=== PATIENT | female | born 1985 | race Asian ===

== ENCOUNTER 2023-08-07 13:41 | Outpatient (CLI) | payer OTHER, SELFPAY ==
--- NOTE | ~2023-08-07 | US_ITS ---
EXAMINATION: US OB <= 14 weeks fetus DATE: 08/07/2023 14:14 INDICATION: Confirmation of viability during first trimester TECHNIQUE: Real-time pelvic ultrasound utilizing transabdominal probe was performed. The fatuma jacobson radiologist was not present for the study. COMPARISON: None. FINDINGS: The uterus measures 14.1 x 6.8 x 9.4 cm. There is an intrauterine gestational sac. A yolk sac and fe arlene pole are identified. The crown rump length measures 1.9 cm, which correlates with an estimated ge stational age of 11 weeks and 5 days. heart motion is identified measuring 171 beats per minute (bpm) by M-mode Doppler. The bilateral ovaries are not visualized. There is no free fluid in the pel vis. IMPRESSION: 1. Single living fetus with heart rate of 171 bpm. 2. Gestational age by ultrasound of 11 weeks 5 day(s) +/- 7 day(s) with ultrasound estimated date of delivery (NEW) of 02/21/2024. Reviewed, dictated and finalized at location A. IMPRESSION: 1. Single living fetus with heart rate of 171 bpm. 2. Gestational age by ultrasound of 11 weeks 5 day(s) +/- 7 day(s) with ultras ound estimated date of delivery (ENW) of 02/21/2024.
== END 2023-08-07 13:42 ==
PROVIDERS: PCP Advanced Practice Midwife; Visit Provider Advanced Practice Midwife
DX: O36.80X0 Pregnancy with inconclusive fetal viability, not applicable or unspecified (principal); Z3A.00 Weeks of gestation of pregnancy not specified
CPT/HCPCS: 76801

== ENCOUNTER 2023-11-08 10:03 | Observation (INO) | payer OTHER, SELFPAY ==
[2023-11-08 10:38] VITALS: BP 112/75; PULSE 92
[2023-11-08 10:45] VITALS: BP 115/74; PULSE 92
--- NOTE | 2023-11-08 10:58 | OBADM ---
This patient, Hallie Snell, admitted to the OB room OB Post 116 for observation. Patient/family oriented to hospital policies and general routines including ID bracelet, bed and alarms, visiting hours, pain management, procedures, bathroom and other care routines, personal items, smoking policy, room service/diet, and visiting hours. Patient/Family are encouraged to report perceived risks to care and to ask questions if they do not understand what they are told or what they should do.
[2023-11-08 11:00] VITALS: BP 114/71; PULSE 92
[2023-11-08 11:15] VITALS: BP 108/64; PULSE 89
[2023-11-08 11:16] LABS: Appearance Urine Clear (Clear); Bacteria Urine 1+ /hpf; Bilirubin Urine Negative (Negative); Blood Urine Negative (Negative); Color Urine Yellow (Yellow); Glucose Urine UA Trace mg/dL (Negative); Ketones Urine Negative (Negative); Leukocyte Esterase Ur 1+ LEU/UL (Negative); Need Manual Microscopic Reviewed; Nitrate Urine Negative (Negative); Non Pathogenic Casts 0-2; Protein Urine Negative (Negative); RBC Urine 0-2 /hpf (0-2); Squamous Epithelial Cell Urine Occasional /hpf (Few); Urobilinogen Urine 0.2 mg/dL (<2.0); WBC Urine 0-5 /hpf (0-3); pH Urine 7.5 (5.0-9.0)
[2023-11-08 11:17] LABS: Add Urine Microscopic? YES
[2023-11-08 11:30] VITALS: BP 104/66; PULSE 90
[2023-11-08 11:45] VITALS: BP 108/71; PULSE 86
--- NOTE | 2023-11-08 11:55 | PC.NURSE ---
Pt refused terbutaline. States she is afraid of shots. Discussed risk of contractions continuing and turning into labor. Pt refused medication at this time.
[2023-11-08] MEDS: NIFEdipine 10 MG CAPSULE PO (12:11)
--- NOTE | 2023-11-16 08:46 | PM.OBTRLD ---
OB - Triage/Final Diagnosis Visit Information Reason for evaluation: other (abdominal pain) Comments/Additional reasons for admission: I have assessed the risk for this patient, Hallie Snell, and determined that she would benefit from observation care. Evaluation Laboratory results: Laboratory Tests 11/08/23 10:52 Urine Color Yellow Urine Appearance Clear Urine pH 7.5 Ur Specific [place] 1.010 Urine Protein Negative Urine Glucose (UA) Trace H Urine Ketones Negative Ur Blood (Man) Negative Urine Nitrate Negative Urine Bilirubin Negative Urine Urobilinogen 0.2 Add Ur Microanalysis Reviewed Leukocyte Esterase Rfl 1+ H Urine RBC 0-2 Urine WBC 0-5 Ur Squamous Epith Cells Occasional Urine Bacteria 1+ H Urine Casts 0-2
== END 2023-11-08 14:00 | disposition home or self-care (01) ==
PROVIDERS: Admitting Provider Obstetrics & Gynecology Gynecology; PCP Advanced Practice Midwife; Visit Provider Obstetrics & Gynecology Gynecology
DX: O26.892 Other specified pregnancy related conditions, second trimester (principal); R10.9 Unspecified abdominal pain; Z3A.25 25 weeks gestation of pregnancy
CPT/HCPCS: 81001; A9270; G0378; G0379

== ENCOUNTER 2024-02-13 09:35 | Outpatient (CLI) | payer OTHER, SELFPAY ==
[2024-02-13 09:57] LABS: Hemoglobin 14.1 g/dL (12.0-15.0); Mean Corpuscular HGB Conc 33.6 g/dl (32-36); Mean Corpuscular Hemoglobin 33.7 pg (26-34); Mean Corpuscular Volume 100.5 fl (80-100); Mean Platelet Volume 10.4 fl (7.4-10.4); Platelet Count Result 156 k/mm3 (150-375); Red Blood Count 4.18 M/mm3 (4.2-5.4); Red Cell Distribution Width 13.3 % (11.5-14.5); White Blood Count 5.9 K/mm3 (4.5-10.0)
[2024-02-13 10:48] LABS: HIV 1/2 Ab P24 Ag Result Negative (Negative)
== END 2024-02-13 09:36 | disposition home or self-care (01) ==
LOC: ANHLAB 09:36
PROVIDERS: Visit Provider Obstetrics & Gynecology Gynecology
DX: Z01.818 Encounter for other preprocedural examination (principal)
CPT/HCPCS: 36415; 85027; 86592; 86703; 86850; 86900; 86901; G0432

== ENCOUNTER 2024-02-14 01:17 | Inpatient (IN) | payer OTHER, SELFPAY ==
[2024-02-14] VITALS (32 sets, daily range): BP systolic 81–173; BP diastolic 49–99; PULSE 55–95; RESP 12–18; TEMP 36.4–37.3; O2SAT 96–99; BMI 24.5
[2024-02-14 02:13] LABS: Glucose Point of Care 98 mg/dl (65-105)
--- NOTE | 2024-02-14 02:14 | WPDANESEPPF ---
Anes - Initial Pre Proc Eval Procedure: Operation Date: 02/15/24 07:30 Proposed Procedures p Repeat Section - Maria C Jung MD Date/Time: 02/14/24 02:14 Surgeon: Sb Pre Op Diagnosis: Labor Pain Pre Op Diagnosis: Repeat , Ruptured membranes Patient Data Age: 38 Gender: F Height: 1.57 m Weight: 61 kg Last Vital Signs Pulse 77 02/14/24 02:01 BP 121/83 02/14/24 02:01 Allergies Allergy/AdvReac Type Severity Reaction Status Date / Time No Known Allergies Allergy Verified 01/26/24 12:23 Home Medications Medication Instructions Recorded Confirmed Type docusate sodium 50 mg capsule 50 mg PO DAILY 01/26/24 01/26/24 History ergocalciferol (vitamin D2) 1,250 1,250 mcg PO WEEKLY 01/26/24 01/26/24 History mcg (50,000 unit) capsule vits no.126-ferrous fum 1 tablet PO DAILY 01/26/24 01/26/24 History 28 mg iron-folic acid 800 mcg tablet (Classic ) Laboratory Tests 02/14/24 02:06 POC Capillary Glucose 98 mg/dl (65-105) : gestational age (NEW 02/19/24) Patient hx anesthesia problems: none Family hx anesthesia problems: none Prior surgeries: Previous C section in Junior 20 years ago Results Review: All pre-operative results and documents have been reviewed as part of the pre-operative evaluation. [facility] Surgical History Surgical History (Updated 02/14/24 @ 02:18 by Mary Neff CRNA) Previous section Family History Family History Sibling Breast cancer Social History Social History Substance use: never Spiritual care concerns: No Comments Gestational Htn- diet controlled Anes - Eval Final PreProcedure Day of Procedure 02/14/24 02:14 Patient weight: normal Heart: regular rate and rhythm Lungs: normal air movement Airway: Mallampati scale class II Neurological: alert and oriented Last oral intake: 4 hours ASA classification: II Emergent: yes Anesthetic plan: proceed Anesthesia type and monitoring: regional spinal Other findings: PF Morphine Results Review: All pre-operative results and documents have been reviewed as part of the pre-operative evaluation. Informed Consent: The patient's anesthetic plan and its attendant risks and benefits were discussed with the patient/family/POA. Questions were solicited and answers provided to the satisfaction of the patient/family/POA.
[2024-02-14] MEDS: LACTATED RINGERS 1,000 ML 125 ML IV CONT (02:20)
[2024-02-14] MEDS: ACETAMINOPHEN 500 MG TABLET 1000 MG PO (02:25)
[2024-02-14] MEDS: ceFAZolin 2 GM/D5W 50 ML 2 GM/50 ML BAG IVPB (02:30)
[2024-02-14 02:44] LABS: Rapid Plasma Reagin Non-Reactive (NonReactive)
--- NOTE | 2024-02-14 03:17 | PM.IMHP ---
H&P: HPI History of Present Illness Date/Time: 02/14/24 03:17 Chief Complaint: Lora wang Narrative: 38 y/o at 38 6/7 weeks with SROM at home. Contractions have developed subsequently. Arrived by EMS. A1DM. Prior through vertical skin incision 20 years ago. Review of Systems Review of Systems: All systems reviewed & are unremarkable except as noted in HPI and below PMFSH Surgical History Surgical History (Updated 02/14/24 @ 03:23 by Toni Basurto MD) Previous section Family History Family History Sibling Breast cancer Social History Social History Smoking status: Never smoker Second hand tobacco smoke exposure: No Substance use: never Do You Feel Safe in your Home?: Yes Lack of Transportation: No Lack of Food: Never True Current Housing: I Have Housing Concerned About Future Housing: No Difficulty Paying Gas/Electric Bills: No Difficulty Paying for Meds: No Currently Unemployed: No Education: Bachelor's Degree Difficulty w/ Childcare or Family Care: No Spiritual care concerns: No Meds Home Medications and Allergies Home Medications Medication Instructions Recorded Confirmed Type docusate sodium 50 mg capsule 50 mg PO DAILY 01/26/24 01/26/24 History ergocalciferol (vitamin D2) 1,250 1,250 mcg PO WEEKLY 01/26/24 01/26/24 History mcg (50,000 unit) capsule vits no.126-ferrous fum 1 tablet PO DAILY 01/26/24 01/26/24 History 28 mg iron-folic acid 800 mcg tablet (Classic ) Allergies Allergy/AdvReac Type Severity Reaction Status Date / Time No Known Allergies Allergy Verified 01/26/24 12:23 Vital Signs Vital Signs - 24 hr 02/14/24 01:46 02/14/24 02:01 02/14/24 02:16 Pulse Rate 71 77 89 Blood Pressure 122/84 121/83 125/71 02/14/24 02:31 02/14/24 02:46 02/14/24 03:01 Pulse Rate 88 78 75 Blood Pressure 173/99 H 117/80 122/77 02/14/24 03:16 Pulse Rate 78 Blood Pressure 124/73 Exam Const: Orientation/consciousness: patient oriented x3 Other: Well-developed, well-nourished female in no acute distress. Neck: Thyroid: thyroid normal Lymphatic: no lymphadenopathy noted (in neck, axilla or inguinal nodes) Resp: Effort & Inspection: normal respiratory effort Auscultation: clear to auscultation bilaterally Cardio: Rate: regular rate Rhythm: regular rhythm Heart sounds: S1 normal heart sound present and S2 normal heart sound present GI: Other: ABD: Soft, nontender, nondistended, gravid. NST reactive. TOCO: irregular contractions. No guarding or rebound tenderness. No hepatosplenomegaly. : General: Yes no CVA tenderness Other: Gross ROM. Cervical exam by RN poorly tolerated, but no significant dilation. Back/Spine/Pelvis: Back: no CVA tenderness Skin: General skin exam: normal color and no rashes or lesions noted Neuro: General: patient oriented x3 Extrem: Other: Extremities: nontender with no edema Psych: Mental Status: mental status grossly normal Affect: normal affect H&P: Results Labs Labs: Accucheck on admission 98 Assessment and Plan Assessment and plan (1) Term : Code(s): Z34.90 - Encounter for supervision of normal , unspecified, unspecified trimester Status: Acute Assessment and Plan: A: IUP at 38 6/7 weeks with SROM, prior . Also A1DM. P: Offered repeat . She understands risks of surgery to include risks of anesthesia, risks of pain, infection, bleeding, blood products, thromboembolic phenomena and damage to adjacent structures such as bowel, bladder, ureters, blood vessels and nerves. She understands all these risks and elects to proceed with surgery. (2) Previous section: Code(s): Z98.891 - History of uterine scar from previous surgery Status: Acute (3) Gestational diabetes mellitus: Code(s): O24.419 - Gestational diabetes mellitus in , unspecified control Status: Acute
[2024-02-14] MEDS: FAMOTIDINE 20 MG/2 ML VIAL IV PUSH (03:18)
[2024-02-14] MEDS: ONDANSETRON INJ 4 MG/2 ML VIAL IV PUSH (03:18)
[2024-02-14] MEDS: AZITHROMYCIN 500 MG/NS 250 ML 500 MG/250 ML BAG 250 MG IVPB (03:21)
--- NOTE | 2024-02-14 03:26 | WPDHPUPDATE1 ---
History and Physical Update Update Date/Time: 02/14/24 03:26 History and Physical has been reviewed, including an updated exam of the patient. There are NO changes in the patient's condition. Risks, benefits, and alternatives have been discussed and questions answered. Patient agrees to proceed with procedure.
--- NOTE | 2024-02-14 04:09 | W.PM.OBCSD ---
OB - Delivery Note Procedure Delivery date: 02/14/24 Pre-op diagnosis: Previous Delivery and Other (SROM) Post-op Diagnosis: Same Induction method: None Delivery monitor: External FHT and External Uterine Procedure Performed: Repeat Surgeon: Toni Basurot MD Anesthesia type: Spinal Description of Procedure/Findings: Findings: Normal-appearing uterus, tubes and ovaries. Techniques: The patient was taken to the operating room where she was prepared and draped in the usual sterile fashion in dorsal supine position with a leftward tilt. She received cefazolin and azithromycin preoperatively. Spinal anesthesia was found to be adequate. A Pfannenstiel skin incision was made with a scalpel and was carried through to the underlying layer of the fascia. The fascia was incised in the midline and the incision was extended laterally. The fascia was dissected free of the underlying rectus muscles. The rectus muscles were in the midline. The peritoneum was identified, tented up and entered sharply. The peritoneal incision was extended superiorly and inferiorly with good visualization of the bladder. The bladder blade was placed. The vesicouterine peritoneum was identified, tented up and entered sharply. The incision was extended laterally and the bladder flap was developed. The bladder blade was replaced. The uterus was then incised sharply in a transverse fashion along the lower uterine segment. The incision was extended laterally. The infant's head was delivered atraumatically to the sterile field, followed by the body. The nose and mouth were bulb suctioned. After a delay, the cord was clamped and cut. The infant was handed off the field. Cord blood was collected. The placenta was removed manually and was passed off the field. The uterus was exteriorized and cleared of all clots and debris. The uterine incision was reapproximated using 0 Monocryl in a running, locked fashion. Excellent hemostasis resulted as did excellent reapproximation of the normal anatomy. The uterus was returned the abdomen. The pelvis was irrigated copiously with warmed normal saline. Rigorous hemostasis was assured. The fascial layer was reapproximated using 0 Vicryl in a running fashion. The skin was closed with a running, subcuticular stitch of 4 0 Vicryl. Dermaflex was applied externally. Sponge, lap, needle and instrument counts were correct. The patient was taken to the recovery room in stable condition. The went to the nursery in stable condition. I was present and scrubbed the entire procedure. Specimen: Yes (Cord blood, placenta) Estimated Blood Loss: 300 Drains: Yes (Zarate) Packing: No Pathology: Yes (Placenta) Complications: None Condition: Stable Disposition: PACU [place] Baby Date of : 02/14/24 Time of : 03:44 Gestational Age by Date: 38 Infant gender: Female Weight (pounds): 6 Placenta delivery description: Manual Removal and Normal Configuration Cord Vessel Description: 3 Vessels and Delayed Cord Clamping score one minute: 9 score five minutes: 9
--- NOTE | 2024-02-14 04:13 | P.DS_ITS ---
DS: Admitting Diagnosis Discharge Date 02/17/24 Admitting Diagnosis IUP at 38 6/7 weeks SROM Prior A1DM DS: Discharge Diagnosis Discharge Diagnosis (1) Gestational diabetes mellitus: Code(s): O24.419 - Gestational diabetes mellitus in , unspecified control Status: Acute (2) Previous section: Code(s): Z98.891 - History of uterine scar from previous surgery Status: Acute (3) Term : Code(s): Z34.90 - Encounter for supervision of normal , unspecified, unspecified trimester Status: Acute (4) SROM (spontaneous rupture of membranes): Status: Acute (5) Pain at surgical incision: Code(s): L76.82 - Other postprocedural complications of skin and subcutaneous tissue Status: Acute OB - DS: Summary OB Procedures : None OB Procedures Intrapartum: OB Procedures: : None Peripartum Data Procedures: Procedures Operation Date: 02/14/24 02:45 <No data on this case meets the specified criteria> Operation Date: 02/15/24 07:30 <No data on this case meets the specified criteria> Time Spent with Patient Time attestation: Total time spent providing and/or coordinating discharge services: DS: Data Data Completed and Pending Labs on day of discharge: Labs from last 24 hours 02/14/24 02/13/24 02:06 09:49 POC Capillary Glucose 98 RPR Non-reactive Discharge Plan Discharge Attending physician on discharge: Maria C Jung Discharging Clinician: Lise Gallardo Anticipated Discharge Date/Time: 02/17/24 10:00 Patient Disposition: Home, Self-Care Activity: may shower, may drive after 2 weeks and pelvic rest Diet: regular Wound Care Instructions: incision open to air Discharge Instructions: Education: Mom and Baby Guide Given to: Mother Follow-Up: Call your delivering provider's office for an appointment to be seen in: 1 Week Mom and baby should come to the [facility] for the follow-up appointment. Appointment Date/Time: January at 12:30 pm What to expect at your follow-up visit: Physical Assessment Call [phone] if you are unable to keep your appointment time. BREAST CARE: * Wear a snug supportive bra. * For engorgement discomfort: Breast Feeding: * Apply warm moist washcloths * Express milk as needed to relieve engorgement * Wear loose clothing Bottle Feeding: * May apply ice packs * For sore nipples: * Identify correct latch-on * Apply warm moist washcloths before and after nursing * Air dry nipples after nursing * May apply Lansinoh cream to nipples ABDOMINAL INCISION: (if applicable) * Allow incision to air dry * Do NOT use lotions for powders on your incision * When showering, allow soap and water to run over the incision, but do not wash incision PERINEAL CARE: * Until bleeding stops, use your shilo bottle after urinating * Change your pad frequently throughout the day * You may take sitz baths several times a day (fill your bathtub with warm water and soak for 20 minutes.) Do NOT bathe in the water * No tub baths until seen by your physician - You may shower ACTIVITY: * Rest as much as possible. * Do not exercise or lift anything heavier than your baby (such as laundry or other children.) * Avoid stairs or driving as much as possible. * Do not put anything into the vagina. No douching, tampons, or sexual activity until seen by physician. NOTIFY PHYSICIAN IF YOU HAVE ANY QUESTIONS OR IF ANY OF THE FOLLOWING SYMPTOMS OCCUR: * If your episiotomy or incision becomes red, swollen, or more painful than what you have experienced in the hospital. * If your vaginal bleeding becomes foul smelling. * If your vaginal bleeding becomes more heavy than a period or if your bleeding changes from pink to bright red. However, you may pass an occasional walnut- sized clot once or twice for the first week . * If you experience a sharp, shooting pain in you calves. * If you discover a hard, reddened area on your breast or if you experience flu- like symptoms. DIET: * Eat regular, well-balanced meals. * Drink plenty of fluids daily. If , drink to thirst. Per Dr. Jung, Call or return if temperature above 100.4? F, increased abdominal pain, increased vaginal bleeding or any new problems. Patient Instructions: Antibiotic Form, (DC) Follow-up/Referrals: Maria C Jung MD [Physician] - 1 Week Discharge Medications: New docusate sodium 100 mg Capsule 100 mg PO BID Qty: 60 0RF hydrocodone-acetaminophen 5-325 mg Tablet 1 tablet PO Q3H PRN (Reason: Pain Rated 4-6) Qty: 15 0RF ibuprofen 600 mg Tablet 600 mg PO Q6H Qty: 30 0RF Continued docusate sodium 50 mg Capsule 50 mg PO DAILY ergocalciferol (vitamin D2) 1,250 mcg (50,000 unit) capsule 1,250 mcg PO WEEKLY Classic 28 mg iron- 800 mcg Tablet 1 tablet PO DAILY Date of admission: 02/14/24 01:17 Primary Care Provider: UNKNOWN,DOCTOR Admitting Provider: Maria C Jung Attending physician on admission: Maria C Jung Condition: Stable
[2024-02-14] MEDS: OXYTOCIN 30 UNITS/NS 500 ML 30 UNITS/500 ML BAG 125 UNITS IV CONT (05:12)
--- NOTE | 2024-02-14 07:15 | PC.NURSE ---
Patient transferred to post room #285 via stretcher. Support person present. Oriented to unit, room, information board, rooming in, admission packet and security measures. Patient verbalizes understanding.
[2024-02-14] MEDS: ACETAMINOPHEN 325 MG TABLET 650 MG PO ×3 (08:57→21:41)
[2024-02-14] MEDS: SIMETHICONE 80 MG TAB.CHEW PO ×2 (08:58→21:47)
[2024-02-14] MEDS: KETOROLAC 15 MG/ML VIAL (*BKC) IV PUSH ×3 (08:58→21:40)
[2024-02-14] MEDS: DEXTROSE 5%/0.45% SOD CHL 1,000 ML 125 ML IV CONT ×2 (09:53→19:17)
--- NOTE | 2024-02-14 20:55 | PC.NURSE ---
1999. Pt's translated conversation at this time. Attempted to get mom out of bed to a chair at this time, pt refused and requests that we try in the morning. Mom requests that infant be brought to the nursery so she can get some rest. Her reports he is leaving for the night and will return around 6am.
[2024-02-14] MEDS: DOCUSATE SODIUM 100 MG CAPSULE PO (21:46)
--- NOTE | 2024-02-14 22:49 | PC.NURSE ---
2019. Pump provided per moms request, demonstration given on proper use of pump and cleaning of the pump. Moms nipples measured and fitted for correct flange size. Mom measured at size 26mm on both nipples, per the medela handout mom should use a size 30 flange. Mom verbalizes understanding of teaching. Mom pumped for 15 min but did not collect any colostrum at this time.
[2024-02-15] MEDS: KETOROLAC 15 MG/ML VIAL (*BKC) IV PUSH (03:37)
[2024-02-15] MEDS: ACETAMINOPHEN 325 MG TABLET 650 MG PO ×4 (03:39→21:52)
[2024-02-15 03:44] VITALS: BP 105/72; PULSE 67; RESP 16; TEMP 36.7; O2SAT 96
[2024-02-15 05:59] LABS: Basophils Percent Auto 0.2 % (0.2-1.2); Eosinophils Absolute Auto 0.2 K/mm3 (0-0.3); Eosinophils Percent Auto 1.3 % (0-4.4); Hematocrit 37.4 % (37.0-47.0); Hemoglobin 12.6 g/dL (12.0-15.0); Immature Granulocyte Absolute 0.05 K/mm3 (0.00-0.031); Immature Granulocyte Percent A 0.4 % (0-0.5); Immature Platelet Fraction Pct 3.2 % (0.9-11.2); Lymphocytes Absolute Auto 1.62 K/mm3 (0.9-3.2); Lymphocytes Percent Auto 13.4 % (18.3-44.2); Mean Corpuscular HGB Conc 33.7 g/dl (32-36); Mean Corpuscular Hemoglobin 33.9 pg (26-34); Mean Corpuscular Volume 100.5 fl (80-100); Mean Platelet Volume 9.9 fl (7.4-10.4); Monocytes Absolute Auto 0.6 K/mm3 (0.1-0.6); Neutrophils Absolute Auto 9.7 K/mm3 (1.3-6.7); Neutrophils Percent Auto 79.7 % (45.5-73.1); Platelet Count Result 139 k/mm3 (150-375); Red Blood Count 3.72 M/mm3 (4.2-5.4); Red Cell Distribution Width 13.4 % (11.5-14.5); White Blood Count 12.1 K/mm3 (4.5-10.0)
[2024-02-15 07:20] VITALS: BP 102/67; PULSE 73; RESP 16; TEMP 36.8; O2SAT 97
[2024-02-15 08:00] VITALS: PULSE 73; RESP 16; O2SAT 97
[2024-02-15] MEDS: SIMETHICONE 80 MG TAB.CHEW PO ×3 (09:43→15:53)
[2024-02-15] MEDS: MULTIVIT/MIN/PREN/FOL AC/IRON TABLET 1 TAB PO (09:43)
[2024-02-15] MEDS: IBUPROFEN 600 MG TABLET PO ×3 (09:43→21:52)
[2024-02-15] MEDS: DOCUSATE SODIUM 100 MG CAPSULE PO ×2 (09:43→19:29)
[2024-02-15] MEDS: HYDROcodone/acetaminophen (*CRX) 5-325 MG TABLET 1 TAB PO ×2 (12:30→19:35)
--- NOTE | 2024-02-15 13:20 | PM.OBPNVD ---
OB - PN: Subj Subjective Date/time seen: 02/15/24 13:20 Patient comments: no complaints and pain well controlled baby status: doing well OB - PN: Obj Data Labs 02/15/24 05:05 Labs: Laboratory Results - last 24 hr 02/15/24 05:05 WBC 12.1 H RBC 3.72 L Hgb 12.6 Hct 37.4 MCV 100.5 H MCH 33.9 MCHC 33.7 RDW 13.4 Plt Count 139 L MPV 9.9 Immature Gran % (Auto) 0.4 Neut % (Auto) 79.7 H Lymph % (Auto) 13.4 L [place] % (Auto) 5.0 Eos % (Auto) 1.3 Baso % (Auto) 0.2 Lymph # (Auto) 1.62 [place] # (Auto) 0.6 Eos # (Auto) 0.2 Baso # (Auto) 0.0 Abs Immat Gran (auto) 0.05 H Absolute Neuts (auto) 9.7 H Absolute Nucleated RBC 0.000 Nucleated RBC % 0.0 % Immature Plt Fraction 3.2 OB - PN A/P Plan day: 1 Plan: routine care Time Spent With Patient Time: Total time spent is greater than 50% in coordination of care (as documented) at patient's floor/unit and/or counseling patient: Exam Narrative: inc c/d/i would not allow me to palpate fundus
--- NOTE | 2024-02-15 15:11 | PC.NURSE ---
1430. Pt's translated the conversation for us. Introductions were made, then consulted with patient to assess needs related to and discuss her plans and experience so far. Mom reports she wanted to have infant in nursery overnight so she could sleep & she requested have bottles overnight. Mom reports she has had a few good breast feed attempts today and baby still seems hungry after so she has continued to supplement with formula after. We reviewed the 15-15-15 feeding plan. Mom encouraged to continue to attempt to breastfeed first for at least 15 min, then supplement with 15 mls formula, and pump after for 15 min. We reviewed milk production and reviewed breastmilk storage guidelines. Resources provided for inpatient and outpatient services with latch on handout and am I making enough milk handout. Mom encouraged to call out for support for infants next feed to assess latch and review how to listen for infant swallows. Mother voiced understanding of information and will call if there is a request for assistance. Reported to the Primary RN.
--- NOTE | 2024-02-15 18:50 | WPDANLDPN2 ---
Anes-Prog Note L&D Date/Time: 02/15/24 18:50 Comfortable throughout: section Neuraxial method: spinal Epidural/Spinal procedure site: clean & non-tender Neuro status: Neuro function grossly intact. Cardiovascular status: normal Respiratory status: normal Airway patency: baseline Mental status: baseline Post-Op hydration status: normal Vital Signs: Last Vital Signs Temp 36.8 C 02/15/24 07:20 Pulse 73 02/15/24 08:00 Resp 16 02/15/24 08:00 BP 102/67 02/15/24 07:20 Pulse Ox 97 02/15/24 08:00 O2 Del Method Room Air 02/15/24 08:00 Pain score (VAS): 2/10 I/O: Intake & Output 02/15/24 02/15/24 02/15/24 07:59 15:59 23:59 Intake Total 550 Output Total 1400 Balance -850 Post-procedural complaints: none Patient feedback: Patient satisfied with anesthetic care.
--- NOTE | 2024-02-15 18:51 | WPDANLDNPN2 ---
Anes-Prog Note L&D-Neuraxial Date/Time: 02/15/24 18:51 Neuraxial medications: intrathecal PF morphine Opiod-related complaints: none Patient feedback: Patient satisfied with post-operative pain management.
[2024-02-15 19:30] VITALS: BP 102/67; PULSE 70; RESP 16; TEMP 36.6; O2SAT 100
[2024-02-16] MEDS: ACETAMINOPHEN 325 MG TABLET 650 MG PO ×4 (03:55→22:36)
[2024-02-16] MEDS: IBUPROFEN 600 MG TABLET PO ×4 (03:55→22:36)
[2024-02-16] MEDS: DOCUSATE SODIUM 100 MG CAPSULE PO ×2 (07:16→22:36)
[2024-02-16] MEDS: SIMETHICONE 80 MG TAB.CHEW PO ×2 (07:16→15:27)
[2024-02-16] MEDS: MULTIVIT/MIN/PREN/FOL AC/IRON TABLET 1 TAB PO (07:17)
[2024-02-16] MEDS: HYDROcodone/acetaminophen (*CRX) 5-325 MG TABLET 1 TAB PO (07:17)
--- NOTE | 2024-02-16 07:54 | PM.OBPNVD ---
OB - PN: Subj Subjective Date/time seen: 02/16/24 07:54 Patient comments: no complaints and pain well controlled baby status: doing well OB - PN: Obj Data Labs 02/15/24 05:05 OB - PN A/P Plan day: 2 Plan: routine care Time Spent With Patient Time: Total time spent is greater than 50% in coordination of care (as documented) at patient's floor/unit and/or counseling patient: Exam Narrative: inc c/d/i would not let palpate uterus but visually at U
[2024-02-16 09:00] VITALS: BP 101/68; PULSE 68; RESP 16; TEMP 36.5; O2SAT 100
--- NOTE | 2024-02-16 11:05 | PC.NURSE ---
Introductions were made, then consulted with patient to assess needs related to . Discussed with mother her?plans to feed?her and the?experience so far. They have a plan in place for the [id number] feeding plan, but struggle with latching. Parents just fed but they will call out at the next feeding for assistance. Resources provided for inpatient and outpatient services with the feeding sheet, mom/baby guide and name/number written on the communication board. Mother voiced understanding of information and will call if there is a request for assistance. Reported to the Primary RN.
--- NOTE | 2024-02-16 15:30 | PC.NURSE ---
Observed mother latching to the [left] breast in [cradle] position. Father assists her to latch. Her nipples are large and baby can't get more than the nipple in her mouth. [was] able to maintain an appropriate latch, off and on with some sucks. Mother [complains of] nipple pain [with initial latch on]. Encouraged mother to keep awake and nursing at the breast for 15 minutes. Mother and father taught to listen for swallowing during feedings. Reviewed supplementing and pumping after to protect her milk supply. Mother voiced understanding of the education shared, to call for assistance if the does not latch or if there is discomfort with . name/number on communication board. Reported to the Primary RN.? ?
[2024-02-16 20:00] VITALS: BP 117/75; PULSE 66; RESP 16; TEMP 36.3; O2SAT 100
[2024-02-17] MEDS: IBUPROFEN 600 MG TABLET PO ×2 (04:15→10:10)
[2024-02-17] MEDS: ACETAMINOPHEN 325 MG TABLET 650 MG PO ×2 (04:15→10:09)
[2024-02-17 07:40] VITALS: BP 102/65; PULSE 62; RESP 16; TEMP 37.1; O2SAT 99
--- NOTE | 2024-02-17 07:52 | PM.OBPNVD ---
OB - PN: Subj Subjective Date/time seen: 02/17/24 07:18 Interval history: Post Day 2 from repeat LTCS. Doing well. Urinating without difficulty. Denies passing any large clots. Denies dizziness with ambulating. Tolerating po food and fluids. Bonding with . Breast and bottle feeding Patient comments: pain well controlled [place] baby status: doing well OB - PN: Obj Data Labs 02/15/24 05:05 OB - PN A/P Assessment and Plan (1) Gestational diabetes mellitus: Code(s): O24.419 - Gestational diabetes mellitus in , unspecified control Status: Acute (2) delivery delivered: Code(s): O82 - Encounter for delivery without indication Status: Acute (3) Pain at surgical incision: Code(s): L76.82 - Other postprocedural complications of skin and subcutaneous tissue Status: Acute Plan day: 2 Plan: discharge home Time Spent With Patient Time: Total time spent is greater than 50% in coordination of care (as documented) at patient's floor/unit and/or counseling patient: Review of Systems Review of Systems: All systems reviewed & are unremarkable except as noted in HPI and below Exam Const: General: cooperative, no acute distress and awake Orientation/consciousness: patient oriented x3 Limitations: no limitations Resp: Effort & Inspection: normal respiratory effort and able to speak in complete sentences Auscultation: clear to auscultation bilaterally Cardio: Rate: regular rate Peripheral pulses: Peripheral pulses 2+ throughout GI: Inspection: normal to inspection Auscultation: normal bowel sounds : General: Yes bladder normal to palpation Speculum Exam - Vagina: vaginal bleeding Bimanual exam- vagina & uterus: bladder normal to palpation OB/external & speculum: vaginal bleeding Other: Fundus firm Skin: General skin exam: normal color Other: Incision Neuro: General: patient oriented x3 Cognition (Neuro): normal cognition Speech: normal speech Extrem: General: normal to inspection Psych: Appearance: grossly normal Mental Status: mental status grossly normal Speech and movement: Normal speech and movement present Affect: normal affect Attitude: cooperative Thought process: Normal thought process present
[2024-02-17] MEDS: MULTIVIT/MIN/PREN/FOL AC/IRON TABLET 1 TAB PO (10:02)
[2024-02-17] MEDS: DOCUSATE SODIUM 100 MG CAPSULE PO (10:03)
[2024-02-17] MEDS: SIMETHICONE 80 MG TAB.CHEW PO ×2 (10:03→13:04)
[2024-02-17] MEDS: HYDROcodone/acetaminophen (*CRX) 5-325 MG TABLET 1 TAB PO (13:03)
--- NOTE | 2024-02-17 19:46 | PC.NURSE ---
1230 Patient viewed the discharge video Mother & Baby Care, The First Two Weeks . Patient was given the opportunity and encouraged to ask questions. Patient verbalized understanding of information shared and has been given the mother/baby guide for home reference. FOB translated this to pt. They both V/U'd.
--- NOTE | 2024-02-17 19:47 | PC.NURSE ---
[id number] FOB translated to pt during this entire time noted.
== END 2024-02-17 14:42 | disposition home or self-care (01) | DRG 788 ==
LOC: ANHLDR 04:13 → ANHOB2 07:20
PROVIDERS: Admitting Provider Obstetrics & Gynecology; Referring Provider Advanced Practice Midwife; Visit Provider Obstetrics & Gynecology Gynecology
PROC: 10D00Z1 Extraction of Products of Conception, Low, Open Approach (ICD-10-PCS; CPT 59514; principal; 2024-02-14 02:45)
DX: O34.219 Maternal care for unspecified type scar from previous cesarean delivery (principal); O24.429 Gestational diabetes mellitus in childbirth, unspecified control; Z3A.38 38 weeks gestation of pregnancy; Z37.0 Single live birth
CPT/HCPCS: 36415; 82948; 85025; 85055; 86592; 88307; A9270; J0456; J0690; J1885; J2250; J2274; J2405; J2590; J7120